=== PATIENT | female | born 1980 | race Two or more races ===

== ENCOUNTER 2017-02-10 18:27 | Emergency (ER) | payer SELFPAY ==
[~2017-02-10] VITALS: Ht 175.3 cm; Wt 77.1 kg
[2017-02-10 18:36] VITALS: BP 102/58
[2017-02-10] MEDS ORDERED: NAPR500T8 PO (19:54)
--- NOTE | 2017-02-10 19:55 | PHYS DOC ---
Past Medical History Past Medical History: No Pertinent History Past Surgical History: Cholecystectomy, Alcohol Use: None Drug Use: None Adult General Chief Complaint Chief Complaint: KNEE INJURY HPI HPI Patient is a 36 year old female with no significant medical history who presents with bilateral knee pain that began a week ago after she fell. Patient states the pain is is worse when she is up and ambulating. She states the pain is mostly on the anterior aspect of the knee. Patient denies any loss of consciousness when she fell. Review of Systems Review of Systems Constitutional: Denies fever or chills [] Eyes: Denies change in visual acuity, redness, or eye pain [] HENT: Denies nasal congestion or sore throat [] Musculoskeletal: Bilateral knee pain pain [] Integument: Denies rash or skin lesions [] Neurologic: Denies headache, focal weakness or sensory changes [] Endocrine: Denies polyuria or polydipsia [] Allergies Allergies Allergies Coded Allergies Type Severity Reaction Last Updated Verified No Known Drug Allergies 08/10/15 No Physical Exam Physical Exam Constitutional: Well developed, well nourished, no acute distress, non-toxic appearance. [] HENT: Normocephalic, atraumatic, bilateral external ears normal, oropharynx moist, no oral exudates, nose normal. [] Skin: Warm, dry, no erythema, no rash. [] Back: No tenderness, no CVA tenderness. [] Extremities: Bilateral knees with no edema and no ecchymosis. Mild tenderness on palpation of bilateral anterior knees. Full range of motion to bilateral knees including negative Shai sign, negative Justen sign, negative anterior -posterior drawer sign to bilateral knees. +2 bilateral pedal pulses. Cap refill less than 2 seconds bilateral lower extremities. Sensation intact to bilateral lower extremities. Neurologic: Alert and oriented X 3, normal motor function, normal sensory function, no focal deficits noted. [] Psychologic: Affect normal, judgement normal, mood normal. [] Current Patient Data Vital Signs Vital Signs Date Time Temp Pulse Resp B/P (MAP) Pulse Ox O2 Delivery O2 Flow Rate FiO2 02/10/17 18:36 98.3 80 18 98 Room Air 98.3 EKG EKG [] Radiology/Procedures Radiology/Procedures [] Course & Med Decision Making Course & Med Decision Making Pertinent Labs and Imaging studies reviewed. (See chart for details) Patient is in the ED with complaints of bilateral knee pain after falling 1 week ago. Bilateral knee x-rays interpreted by Dr. Barragan negative for any acute findings. Ice and elevation recommended, Ferdinand wrap recommended. Follow-up with orthopedic doctor we provided in a week if pain continues. Naproxen for pain. Dragon Disclaimer Dragon Disclaimer This electronic medical record was generated, in whole or in part, using a voice recognition dictation system. Departure Departure Impression: Primary Impression: Contusion, knee Additional Impression: Fall from standing Disposition: HOME, SELF-CARE Condition: STABLE Referrals: NO PCP (PCP) MANOHAR TRAN II, MD Follow-up in one week if pain continues Patient Instructions: Contusion, Fall Prevention and Home Safety, Knee Pain Additional Instructions: You were seen for knee contusion after falling on your knees. Your knee x-rays are normal. Ice and elevate the extremities. You can get [id number] Ferdinand wrap and use them as needed on your knees. Take Tylenol/ Motrin as needed for pain. Follow-up with the provided orthopedic doctor in a week if pain continues. Scripts Naproxen (NAPROXEN) 500 Mg Tablet.dr 1 TAB PO BID, #60 TAB 2 Refills Prov: RADHA DOMINGO APRN 02/10/17 Problem Qualifiers RADHA DOMINGO APRN February 10, 2017 19:54
--- NOTE | 2017-02-11 08:13 | RAD ---
Bilateral knees with patella, 8 views, 02/10/2017: History: Fall, pain No fracture or dislocation is identified. No significant arthritic change is seen. No joint effusion is evident. IMPRESSION: No acute knee abnormality is detected.
== END 2017-02-10 20:00 | disposition home or self-care (01) ==
LOC: ER 19:49
DX: S80.02XA Contusion of left knee, initial encounter (principal); S80.01XA Contusion of right knee, initial encounter; Z90.49 Acquired absence of other specified parts of digestive tract; Z98.890 Other specified postprocedural states; W18.39XA Other fall on same level, initial encounter; Y93.89 Activity, other specified; Y99.8 Other external cause status; Y92.89 Other specified places as the place of occurrence of the external cause
CPT/HCPCS: 73564; 99284

== ENCOUNTER 2017-03-26 07:58 | Emergency (ER) | payer OTHER ==
[~2017-03-26] VITALS: Ht 175.3 cm; Wt 77.1 kg
[~2017-03-26 07:58] MED LIST: NAPR500T8 PO
[2017-03-26 08:11] VITALS: BP 111/65
[2017-03-26] MEDS ORDERED: HYDR-2758 PO (08:35)
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
== END 2017-03-26 08:47 | disposition home or self-care (01) ==
LOC: ER 07:58
DX: M54.2 Cervicalgia (principal); M54.5 Low back pain; Z90.49 Acquired absence of other specified parts of digestive tract
CPT/HCPCS: 99283